=== PATIENT | female | born 1940 | race Caucasian/White ===

== ENCOUNTER → 2025-05-23 | Outpatient (CLI) | payer MEDICARE ==
[~2025-05-23] MED LIST: ALEN70TA80 PO; APIX5TAB PO; CHOL125C6 PO; CYAN1TAB44 PO; FERR-82 PO; HYDR12.54 PO; LISI20TA24 PO; OMEP40CA21 PO; PRAVASTATIN 80MG PO
--- NOTE | 2025-05-23 13:53 | HMCIMG ---
EXAM: CR CHEST, 2 VIEWS CLINICAL HISTORY: Pulmonary embolism COMPARISON: None provided TECHNIQUE: Frontal and lateral radiographs of the chest. FINDINGS: Lines/Devices: None. Lungs: Mild diffuse increased bronchovascular markings, which could represent pulmonary congestion versus chronic bronchitis, for follow-up. Mildly elevated left hemidiaphragmatic cupola. No consolidation or ground-glass opacities are observed. There is no pleural effusion. There is no pneumothorax. Mediastinum and cardiovascular structures: Prominent aortic knob is noted.The cardiac silhouette is not enlarged. The central airway and mediastinal contours are unremarkable. Bones and soft tissues: Mild thoracic spondylodegenerative changes with small anterior osteophytes. Evidence of bilateral shoulder joint arthroplasty. IMPRESSION: 1. Mild diffuse increased bronchovascular markings, possibly representing pulmonary congestion versus chronic bronchitis. No consolidation, pleural effusion, or pneumothorax. Follow-up recommended. 2. Prominent aortic knob.Cardiac silhouette is not enlarged. 3. Mild thoracic spondylodegenerative changes and bilateral shoulder arthroplasty, see report body for details. /Calvin
== END | disposition home or self-care (01) ==
LOC: RAH 09:26
PROVIDERS: ATTEND Internal Medicine Pulmonary Disease
DX: I26.99 Other pulmonary embolism without acute cor pulmonale (principal); J98.6 Disorders of diaphragm; M25.78 Osteophyte, vertebrae; M47.814 Spondylosis without myelopathy or radiculopathy, thoracic region; Z96.611 Presence of right artificial shoulder joint; Z96.612 Presence of left artificial shoulder joint
CPT/HCPCS: 71046